=== PATIENT | female | born 1950 | race Caucasian/White ===

== ENCOUNTER 2017-11-21 14:00 | Outpatient (CLI) | payer MEDICARE ==
[~2017-11-21] VITALS: Ht 160 cm; Wt 95.3 kg
[~2017-11-21 14:00] MED LIST: ACHD5005 PO; ALPR1TAB2 PO; AMIT50TA3 PO; AMLO5TAB2 PO; ASPI-586 PO; CLOP75TA69 PO; FLDR.1T PO; GEMF600T PO; LEVO100T7 PO; LEVO500T2 PO; LISI-552 PO; MAGN400C PO; METF1000 PO; METH750T3 PO; METO-333 PO; METO10TA3 PO; MONT10TA24 PO; NIAC10002 PO; OMG1KC PO; RANI300C PO; ROSU20TA PO; SERT100T PO; bp med
[2017-11-21] MEDS ORDERED: NIAC500T24 PO (14:12)
[2017-11-21] MEDS ORDERED: MAGN500T PO (14:12)
[2017-11-21] MEDS ORDERED: ROSU5TAB11 PO (14:12)
[2017-11-21] MEDS ORDERED: MULT-178 PO (14:12)
[2017-11-21] MEDS ORDERED: METF1000 PO (14:12)
== END 2017-11-21 14:13 ==
LOC: PREOP 14:00
PROVIDERS: ATTEND Specialist
DX: Z01.818 Encounter for other preprocedural examination (principal); H25.12 Age-related nuclear cataract, left eye

== ENCOUNTER 2017-11-24 09:16 | Day surgery (SDC) | payer MEDICARE ==
[~2017-11-24] VITALS: Ht 160 cm; Wt 95.3 kg
[~2017-11-24 09:16] MED LIST changes: +MAGN500T PO; +MULT-178 PO; +NIAC500T24 PO; +ROSU5TAB11 PO
[2017-11-24] MEDS ORDERED: LIDOCAINE PF 1% 2 ML AMP IR PRN (09:45)
[2017-11-24] MEDS ORDERED: POVIDONE (BETADINE) OPHTH SOLN 5% 30 ML OP ONE (09:45)
[2017-11-24] MEDS ORDERED: VANCOMYCIN/BSS (COMPOUNDED) 10 MG/ML SYR OP ONE (09:45)
[2017-11-24] MEDS ORDERED: EPINEPHrine INJECTION 1 MG/ML AMP INJ ONE (09:45)
[2017-11-24] MEDS ORDERED: TIMOLOL MALEATE 0.5% 5 ML (TIMOPTIC) BTL OU PRN (09:45)
[2017-11-24] MEDS: TETRACAINE 0.5% OPHTH SOLN 4 ML BTL (SINGLE DOSE ONLY) OU PRN ×4 (09:52→10:14)
[2017-11-24 09:53] VITALS: BP 117/82
[2017-11-24] MEDS: CYCLOPENTOLATE 1% (CYCLOGYL) 2 ML DROPS OP SCH ×3 (10:02→10:14)
[2017-11-24] MEDS: PHENYLEPHRINE 10% OPHTH (NEO-SYN) 5 ML BTL OU SCH ×3 (10:02→10:14)
--- NOTE | 2017-11-24 10:41 | Ophthalmologist Pre-Op Note ---
Pre-Operative Progress Note H&P Reviewed The H&P was reviewed, patient examined and no changes noted. Date H&P Reviewed: Nov 24, 2017 Time H&P Reviewed: 10:41 Pre-Op Dx Cataract, Left Eye FAHAD ESPINO MD Nov 24, 2017 10:41
[2017-11-24] MEDS ORDERED: MIDAZOLAM 2 MG/2 ML (VERSED) VIAL ONE (10:42)
--- NOTE | 2017-11-24 11:06 | Ophthalmology Operative Report ---
Cataract removal/placement IOL PREOPERATIVE DIAGNOSIS: Cataract Left Eye POSTOPERATIVE DIAGNOSIS: Cataract Left Eye PROCEDURE: Cataract removal and placement of posterior chamber implant, left eye SURGEON: Gerald Espino ANESTHESIA: Topical with sedation COMPLICATIONS: None ESTIMATED BLOOD LOSS: Minimal DESCRIPTION OF PROCEDURE: After proper informed consent was obtained, the patient, a 67 female, was taken to the Operating Room and the left eye was anesthetized with tetracaine. They left eye was then prepped and draped in the usual manner. A wire lid speculum was placed. A paracentesis was made at the left hand position. Preservative free lidocaine was injected into the anterior chamber followed by viscoelastic. A clear corneal incision was made in the temporal position. A capsulorrhexis was preformed and the central nuclear and cortical material were removed. The posterior capsule was polished and Sagar [id number] 21.0 IOL was placed into the capsular bag. The residual viscoelastic was aspirated and balanced saline solution was injected into the anterior chamber. 1.0 ml of Vancomycin (10mg/ 1.0ml) was injected into the anterior chamber. The would was checked and found to be water tight. The patient tolerated the procedure well without complications. GERALD ESPINO MD Nov 24, 2017 11:06
[2017-11-24 11:17] VITALS: BP 159/76
--- NOTE | 2017-11-24 15:00 | Anesthesia-General Post-Op ---
MAC Patient Condition Mental Status/LOC: Same as Preop Cardiovascular: Satisfactory Nausea/Vomiting: Absent Respiratory: Satisfactory Pain: Controlled Complications: Absent Post Op Complications Complications None Follow Up Care/Instructions Patient Instructions None needed. Anesthesiology Discharge Order Discharge Order Patient is doing well, no complaints, stable vital signs, no apparent adverse anesthesia problems. No complications reported per nursing. KIRSTIN ESCOBAR CRNA Nov 24, 2017 15:00
== END 2017-11-24 11:17 | disposition home or self-care (01) ==
LOC: SDC 09:16
PROVIDERS: ATTEND Specialist
DX: H25.9 Unspecified age-related cataract (principal); E11.36 Type 2 diabetes mellitus with diabetic cataract; I10 Essential (primary) hypertension; J45.909 Unspecified asthma, uncomplicated; F17.210 Nicotine dependence, cigarettes, uncomplicated; I25.2 Old myocardial infarction; Z96.651 Presence of right artificial knee joint; Z79.84 Long term (current) use of oral hypoglycemic drugs; Z79.899 Other long term (current) drug therapy
CPT/HCPCS: 82962

== ENCOUNTER → 2018-04-11 | Outpatient (CLI) | payer MEDICARE ==
[~2018-04-11] MED LIST changes: -METF1000 PO; +METF10002 PO; -ROSU5TAB11 PO; +ROSU5TAB12 PO
--- NOTE | 2018-04-11 12:29 | Diagnostic Imaging Report ---
INDICATION: Chronic left knee pain. AP, oblique, and lateral views of the left knee are obtained. FINDINGS: No fracture or acute bony abnormality seen. There is mild superior patellar spurring. There is mild medial joint space narrowing. There is no overt joint effusion. IMPRESSION: Mild degenerative changes. No acute bony abnormality. Dictated by: Dictated on workstation # [id number]
== END ==
LOC: RAD 11:32
DX: M17.12 Unilateral primary osteoarthritis, left knee (principal)
CPT/HCPCS: 73562

== ENCOUNTER → 2018-04-16 | Outpatient (CLI) | payer MEDICARE ==
--- NOTE | 2018-04-16 13:23 | Diagnostic Imaging Report ---
PROCEDURE: CT left lower extremity without contrast. TECHNIQUE: Multiple contiguous axial images were obtained through the left lower extremity without the use of intravenous contrast. Sagittal and coronal reformations were then performed. INDICATION: Anterior knee pain. COMPARISON: Left knee radiographs from 04/11/2018. FINDINGS: There is mild lateral tilting of the patella that is likely due to asymmetric chondral loss in the lateral patellar facet and trochlea. Subcortical non-masslike sclerotic focus in the anterior aspect of the medial condyle has a nonaggressive appearance. Mild degenerative joint space narrowing in the medial compartment is noted. No fracture. No mineralized intra-articular loose bodies. No knee joint effusion. No appreciable Stroud's cyst. IMPRESSION: 1. Knee osteoarthritis is greatest in the patellofemoral compartment and may account for anterior knee pain. 2. Tiny nonaggressive sclerotic focus in the anterior aspect of the medial femoral condyle may represent a bone island or developing intraosseous ganglion. Since the patient does have anterior knee pain, knee MRI may be beneficial for further characterization. Dictated by: Dictated on workstation # [id number]
== END ==
LOC: RAD 11:47
DX: M17.12 Unilateral primary osteoarthritis, left knee (principal)
CPT/HCPCS: 73700

== ENCOUNTER → 2018-10-11 | Outpatient (CLI) | payer MEDICARE ==
[~2018-10-11] MED LIST changes: -AMLO5TAB2 PO; +AMLO5TAB9 PO; +METF-399 PO; -METF10002 PO
== END ==
LOC: CARD 08:59
PROVIDERS: ATTEND Internal Medicine Cardiovascular Disease
DX: I25.10 Atherosclerotic heart disease of native coronary artery without angina pectoris (principal); J44.9 Chronic obstructive pulmonary disease, unspecified; E13.9 Other specified diabetes mellitus without complications; R53.83 Other fatigue; E03.9 Hypothyroidism, unspecified; E78.2 Mixed hyperlipidemia; Z72.0 Tobacco use
CPT/HCPCS: 93306

== ENCOUNTER → 2018-10-15 | Outpatient (CLI) | payer MEDICARE ==
[~2018-10-15] MED LIST changes: +REGADENOSON 0.4 MG/5 ML SYR (LEXISCAN) IV ONE
[2018-10-15] MEDS: CATHETER FLUSH 10 ML SYR IV PRN ×2 (07:58→09:19)
[2018-10-15 09:17] VITALS: BP 170/73
--- NOTE | 2018-10-16 12:43 | STRESS TEST ---
DATE OF SERVICE: 10/15/2018 LEXISCAN MYOVIEW STRESS TEST REPORT Baseline heart rate is 59 and baseline blood pressure 143/74. Baseline EKG is sinus rhythm with no ischemic changes. In summary, the patient was injected with 7.54 mCi of technetium-99 Myoview and the resting images were obtained. Then, the patient received 0.4 mg of Lexiscan followed by 23.4 mCi of technetium-99 Myoview. Throughout the test, there were no EKG changes. The resting and stress images were reviewed and compared in the short axis, horizontal long axis and vertical long axis views. Review of the images showed reversible ischemia involving the whole inferior wall, inferolateral wall and inferoseptum. SSS is 19, SDS 9 and TID value is 1.0. On the gated images, the left ventricle appeared to be normal size with normal contractility. Calculated ejection fraction is 72%. CONCLUSION: 1. The patient tolerated the Lexiscan well. 2. Reversible ischemia involving the whole inferior wall and inferolateral wall and inferoseptum. 3. Normal left ventricular size with normal contractility. Calculated ejection fraction is 72%. Job ID: [id number] DocumentID: [id number] Dictated Date: 10/16/2018 12:29:59 [place] Date: 10/16/2018 12:42:30 Dictated By: TRACIE BURNETTE MD
== END ==
LOC: CARD 07:35
PROVIDERS: ATTEND Internal Medicine Cardiovascular Disease
DX: I25.10 Atherosclerotic heart disease of native coronary artery without angina pectoris (principal); E78.2 Mixed hyperlipidemia; J44.9 Chronic obstructive pulmonary disease, unspecified; E11.9 Type 2 diabetes mellitus without complications; R53.83 Other fatigue; E03.9 Hypothyroidism, unspecified; Z72.0 Tobacco use
CPT/HCPCS: 78452; 93017

== ENCOUNTER → 2020-04-21 | Outpatient (CLI) | payer MEDICARE ==
[~2020-04-21] MED LIST changes: -MONT10TA24 PO; +MONT10TA26 PO; -REGADENOSON 0.4 MG/5 ML SYR (LEXISCAN) IV ONE; -ROSU20TA PO; +ROSU20TA2 PO; -ROSU5TAB12 PO; +ROSU5TAB13 PO
--- NOTE | 2020-04-21 13:12 | Diagnostic Imaging Report ---
INDICATION: Postmenopausal state. COMPARISON: None available FINDINGS: AP Spine L1-L4: [BMD (g/cm2): na] [T-Score: na] [Z-Score: na] [BMD Previous: na] [BMD % Change: na] LT Hip Neck: [BMD (g/cm2): 0.929] [T-Score: -0.8] [Z-Score: 0.3] LT Hip Total: [BMD (g/cm2):1.050] [T-Score:0.3] [Z-Score: 1.1] [BMD Previous: na] [BMD % Change: na] RT Hip Neck: [BMD (g/cm2):0.977] [T-Score:-0.4] [Z-Score:0.6] RT Hip Total: [BMD (g/cm2):1.061] [T-score:0.4] [Z-Score:1.2] [BMD Previous:na] [BMD % Change:na] *Indicates significant change from prior examination based on 95% confidence level. World Health Organization criteria for BMD interpretation classify patients as Normal (T-score at or above -1.0), Osteopenic (T-score between -1.0 and -2.5) or Osteoporotic (T-score at or below -2.5). LIMITATIONS AND MODIFICATION: The lumbar spine was not evaluated secondary to postsurgical changes IMPRESSION: 1. Normal bone mineral density. 2. Baseline examination. 3. See below National Osteoporosis Foundation guidelines on when to potentially initiate pharmacologic therapy. Based on the National Osteoporosis Foundation Guidelines, pharmacologic treatment should be initiated in any of the following, unless clinical conditions suggest otherwise: * Any patient with prior fragility fracture of the hip or vertebrae. A spine fracture indicates 5X risk for subsequent spine fracture and 2X risk for subsequent hip fracture. * Osteoporosis (T-score <-2.5). * Postmenopausal women and men age 50 and older with low bone mass/osteopenia (T-score between -1.0 and -2.5) by DXA and 10-year major osteoporotic fracture greater than 20% or a 10-year probability of hip fracture greater than 3%. These fracture risks are supplied above in the FRAX score, if applicable. * Clinician judgement and/or patient preferences may indicate treatment for people with 10-year fracture probabilities above or below these levels. Dictated by: Dictated on workstation # [id number]
== END ==
LOC: RAD 10:30
PROVIDERS: ATTEND Nurse Practitioner Family
DX: M81.0 Age-related osteoporosis without current pathological fracture (principal); Z78.0 Asymptomatic menopausal state
CPT/HCPCS: 77080